=== PATIENT | male | born 1990 | race African-American/Black ===

== ENCOUNTER 2017-09-24 21:41 | Emergency (ER) | payer SELFPAY ==
[~2017-09-24] VITALS: Ht 177.8 cm; Wt 72.6 kg
[2017-09-24 22:33] LABS: *BILIRUBIN,URIN NEGATIVE (NEGATIVE); *BLOOD, URINE NEGATIVE (NEGATIVE); *CLARITY,URINE CLEAR (CLEAR); *COLOR,URINE YELLOW (YELLOW); *KETONES,URINE TRACE (NEGATIVE); *PROTEIN,URINE NEGATIVE (NEGATIVE); *UROBILINOGEN,URINE 0.2 E.U./dl (NORMAL); LEUKOCYTE ESTERASE ,URINE NEGATIVE (NEGATIVE); NITRITE, URINE NEGATIVE (NEGATIVE); UGLUCOSE NEGATIVE (NEGATIVE)
[2017-09-24 22:36] LABS: RBC,URINE 0-3 /HPF (0-3); WBC,URINE 0-3 /HPF (0-3)
[2017-09-24 22:37] LABS: BACTERIA,URINE FEW /HPF (NONE SEEN); SQUAMOUS EPITHELIAL CELL,UR FEW /HPF (NONE SEEN)
[2017-09-24] MEDS ORDERED: IV NORMAL SALINE 1000 ML BAG IV ONE (23:00)
[2017-09-24 23:58] LABS: BASOPHILS % (AUTO) 0.3 % (0.0-2.0); HEMATOCRIT 42.5 % (36.7-47.1); HEMOGLOBIN 14.4 g/dL (12.5-16.3); LYMPHOCYTES # (AUTO) 1.2 K/uL (20.0-40.0); LYMPHOCYTES % (AUTO) 9.9 % (20.5-51.5); MEAN CORPUSCULAR HEMOGLOBIN 28.3 uug (23.8-33.4); MEAN CORPUSCULAR HGB CONC 34 g/dL (32.5-36.3); MEAN CORPUSCULAR VOLUME 83.4 fL (73.0-96.2); MONOCYTES # (AUTO) 1.1 K/uL (2.0-10.0); MONOCYTES % (AUTO) 9.1 % (0.0-11.0); NEUTROPHILS # (AUTO) 9.5 K/uL (1.8-8.9); NEUTROPHILS % (AUTO) 80.7 % (38.5-71.5); PLATELET COUNT (AUTO) 240 K/uL (152-348); RED BLOOD CELL COUNT(AUTO) 5.09 MIL/uL (4.06-5.63); WHITE BLOOD COUNT (AUTO) 11.8 K/uL (3.6-10.2)
[2017-09-25 00:10] LABS: CREATININE 1.4 mg/dL (0.6-1.3); POTASSIUM 4.1 mmol/L (3.5-5.1)
[2017-09-25 00:16] LABS: BILIRUBIN,DIRECT 0.1 mg/dL (0.0-0.2); BILIRUBIN,TOTAL 0.6 mg/dL (0.2-1.0); TOTAL PROTEIN, SERUM 7.9 g/dL (6.4-8.2)
--- NOTE | 2017-09-25 01:04 | NUR ---
PT IN BED RESTING QUIETLY WITH EYES CLOSED. IV FLUIDS WERE WELL TOLERATED. PT REPORTED REDUCED FLANK PAIN. VSS. NO SIGNS/SYMPTOMS OF DISTRESS WITNESSED AT THIS TIME BY NURSE OR EXPRESSED BY PT.
--- NOTE | 2017-09-25 01:55 | NUR ---
PT IN BED. PT REQUESTED ANOTHER LITER OF SALINE FLUID PRIOR TO DC. MD BRO MADE AWARE.
[2017-09-25] MEDS ORDERED: IV NORMAL SALINE 1000 ML BAG IV ONE (02:00)
--- NOTE | 2017-09-25 02:59 | NUR ---
Patient discharged to home in stable conditon. Written and verbal after care instructions given. Patient verbalizes understanding of instructions. Patient denied any flank pain prior to discharge. Patient able to ambulate with steady gait. Patient left with all personal belongings.
[2017-09-25 03:18] VITALS: BP 124/68
== END 2017-09-25 03:00 | disposition home or self-care (01) ==
LOC: ER 21:44
DX: E86.0 Dehydration (principal)
CPT/HCPCS: 36415; 71045; 85025; A4663; J7030